=== PATIENT | male | born 1990 | race Caucasian/White ===

== ENCOUNTER 2018-03-17 18:56 | Emergency (ER) | payer SELFPAY ==
[2018-03-17 20:06] LABS: PLATELET COUNT 231 10^3/uL (150-400)
--- NOTE | 2018-03-17 20:31 | EDPHY ---
H & P Time Seen by Provider: 03/17/18 19:08 HPI/ROS: CHIEF COMPLAINT: Chest pain and paresthesias in all 4 extremities HISTORY OF PRESENT ILLNESS: Patient is a 28-year-old male with history of anxiety, marijuana use and cocaine use chief complaint of chest pain and it paresthesias in his extremities. He states that 1 hr ago he was sitting watching TV and he developed numbness in the back of bilateral legs in the calf region. He then states that he felt anxious and started looking up causes of his symptoms on his phone and then developed paresthesias in upper extremities and then developed shortness of breath and sharp chest pain that did not radiate. Denies any history of cardiac disease. He does smoke and use cocaine. He has no family history of severe cardiac disease versus early cardiac . REVIEW OF SYSTEMS: Constitutional: No fever, no chills. Eyes: No discharge. ENT: No sore throat. Cardiovascular: + chest pain, no palpitations. Respiratory: No cough, no shortness of breath. Gastrointestinal: No abdominal pain, no vomiting. Genitourinary: No hematuria. Musculoskeletal: No back pain. Skin: No rashes. Neurological: No headache. Smoking Status: Current every day smoker Physical Exam: General Appearance: Alert and no distress. Eyes: Pupils equal and round no injection. Respiratory: Chest is nontender, lungs are clear to auscultation. Cardiac: regular rate and rhythm. Gastrointestinal: Abdomen is soft and nontender, no masses, bowel sounds normal. Musculoskeletal: Neck is supple and nontender. Extremities have full range of motion and are nontender. Skin: No rashes or lesions. Neuro: Equal strength and sensation in bilateral upper extremities and lower extremities. Cranial nerves grossly intact. Alert and oriented. Ambulating without difficulty. Constitutional: Initial Vital Signs Temperature (C) 37.0 C 03/17/18 18:57 Heart Rate 94 03/17/18 18:57 Respiratory Rate 18 03/17/18 18:57 Blood Pressure 154/95 H 03/17/18 18:57 O2 Sat (%) 97 03/17/18 18:57 O2 Delivery Mode Room Air Allergies/Adverse Reactions: No Known Allergies Allergy (Unverified 03/17/18 19:00) Home Medications: Medication Instructions Recorded NK [No Known Home Meds] 03/17/18 Medical Decision Making - Diagnostics Imaging Results: Imaging Impressions Chest X-Ray 03/17/18 19:11 Impression: Clear lungs. No acute process. ED Course/Re-evaluation: Patient here with chest pain and has such a normal EKG with possible repolarization changes in V2 and V3. Troponin is negative. Chest x-ray reveals no focal infiltrate. This is likely anxiety and paresthesias of unclear etiology. We discussed further evaluation of this primary care for his paresthesias. He is low risk per his heart score for ACS was discharged home with outpatient follow-up. Differential Diagnosis: Pulmonary embolism, pneumothorax, ACS, arrhythmia, MS - Data Points Laboratory Results: Laboratory Results 03/17/18 19:10 03/17/18 19:10 03/17/18 03/17/18 03/17/18 19:26 19:10 19:10 WBC 6.80 10^3/uL 10^3/uL (3.80-9.50) RBC 4.89 10^6/uL 10^6/uL (4.40-6.38) Hgb 16.8 g/dL g/dL (13.7-17.5) Hct 48.0 % % (40.0-51.0) MCV 98.2 fL fL (81.5-99.8) MCH 34.4 pg H pg (27.9-34.1) MCHC 35.0 g/dL g/dL (32.4-36.7) RDW 12.3 % % (11.5-15.2) Plt Count 231 10^3/uL 10^3/uL (150-400) MPV 10.0 fL fL (8.7-11.7) Neut % (Auto) 57.0 % % (39.3-74.2) Lymph % (Auto) 25.0 % % (15.0-45.0) [place] % (Auto) 14.3 % H % (4.5-13.0) Eos % (Auto) 2.2 % % (0.6-7.6) Baso % (Auto) 1.2 % % (0.3-1.7) Nucleat RBC Rel Count 0.0 % % (0.0-0.2) Absolute Neuts (auto) 3.88 10^3/uL 10^3/uL (1.70-6.50) Absolute Lymphs (auto) 1.70 10^3/uL 10^3/uL (1.00-3.00) Absolute Monos (auto) 0.97 10^3/uL H 10^3/uL (0.30-0.80) Absolute Eos (auto) 0.15 10^3/uL 10^3/uL (0.03-0.40) Absolute Basos (auto) 0.08 10^3/uL 10^3/uL (0.02-0.10) Absolute Nucleated RBC 0.00 10^3/uL 10^3/uL (0-0.01) Immature Gran % 0.3 % % (0.0-1.1) Immature Gran # 0.02 10^3/uL 10^3/uL (0.00-0.10) Sodium 138 mEq/L mEq/L (135-145) Potassium 3.8 mEq/L mEq/L (3.3-5.0) Chloride 103 mEq/L mEq/L (97-110) Carbon Dioxide 20 mEq/l L mEq/l (22-31) Anion Gap 15 mEq/L mEq/L (8-16) BUN 17 mg/dL mg/dL (7-23) Creatinine 0.9 mg/dL mg/dL (0.7-1.3) Estimated GFR > 60 Glucose 101 mg/dL H mg/dL (70-100) Calcium 9.4 mg/dL mg/dL (8.5-10.4) Magnesium POC Troponin I 0.00 ng/mL ng/mL (0.00-0.08) 03/17/18 19:10 WBC RBC Hgb Hct MCV MCH MCHC RDW Plt Count MPV Neut % (Auto) Lymph % (Auto) [place] % (Auto) Eos % (Auto) Baso % (Auto) Nucleat RBC Rel Count Absolute Neuts (auto) Absolute Lymphs (auto) Absolute Monos (auto) Absolute Eos (auto) Absolute Basos (auto) Absolute Nucleated RBC Immature Gran % Immature Gran # Sodium Potassium Chloride Carbon Dioxide Anion Gap BUN Creatinine Estimated GFR Glucose Calcium Magnesium 2.0 mg/dL mg/dL (1.6-2.3) POC Troponin I Point of Care Test Results: Chemistry 03/17/18 19:26 POC Troponin I 0.00 ng/mL ng/mL (0.00-0.08) Departure - Departure Disposition: Home, Routine, Self-Care Clinical Impression: Chest pain, Paresthesias Condition: Good Instructions: Chest Pain (ED) Additional Instructions: Please follow up [facility] to discuss his symptoms further. Refrain from using cocaine. Referrals: NONE *PRIMARY CARE P,. [Primary Care Provider] - As per Instructions [facility],. [Clinic] - As per Instructions
[2018-03-17 20:41] VITALS: BP 145/79
== END 2018-03-17 20:40 | disposition home or self-care (01) ==
DX: R07.9 Chest pain, unspecified (principal); R20.2 Paresthesia of skin
CPT/HCPCS: 84484-PO